=== PATIENT | female | born 1990 | race Caucasian/White ===

== ENCOUNTER 2018-08-01 12:54 | Outpatient (CLI) | payer MEDICAID | END 2018-08-01 14:58 | disposition home or self-care (01) | LOC: OBT 12:54 → L-D 12:54 → OBT 14:58 | DX: O62.9 Abnormality of forces of labor, unspecified (principal); Z3A.39 39 weeks gestation of pregnancy | CPT/HCPCS: 76815; 76818 ==

== ENCOUNTER 2018-08-06 09:04 | Inpatient (IN) | payer MEDICAID ==
[2018-08-06] MEDS ORDERED: MISOPROSTOL 50 MCG CAPSULE VAG (10:00)
[2018-08-06] MEDS ORDERED: BUTORPHANOL 2 MG INJ IV ×2 (10:00)
[2018-08-06] MEDS ORDERED: CARBOPROST 250 MCG INJ IM (10:00)
[2018-08-06] MEDS ORDERED: MISOPROSTOL 200 MCG TAB PR (10:00)
[2018-08-06] MEDS ORDERED: OXYTOCIN 30 UNITS/LR 500 ML IV (10:00)
[2018-08-06] MEDS ORDERED: LIDOCAINE 1% (MPF) 30 ML INJ INJ (10:00)
[2018-08-06] MEDS: LACTATED RINGER'S 1,000 ML IV ×3 (10:08→23:20)
[2018-08-06 10:33] LABS: ADD MAN DIFF? NO
[2018-08-06 10:36] LABS: BASOPHILS % 0.3 % (0.0-2.0); EOSINOPHILS % 0.3 % (0.0-7.0); HEMATOCRIT 38.5 % (37.0-47.0); LYMPHOCYTES # 1.2 10^3/ul (0.8-2.9); LYMPHOCYTES % 21.4 % (15.0-51.0); MEAN CORPUSCULAR HEMOGLOBIN 31.4 pg (29.0-33.0); MEAN CORPUSCULAR HGB CONC 33.8 g/dl (32.0-37.0); MONOCYTE # 0.4 10^3/ul (0.3-0.9); MONOCYTES % 6.3 % (0.0-11.0); NEUTROPHIL # 4.1 10^3/ul (1.6-7.5); NEUTROPHILS % 71.4 % (39.0-77.0); PLATELET COUNT 156 10^3/UL (140-415); RED BLOOD COUNT 4.14 10^6/ul (4.20-5.40); RED CELL DISTRIBUTION WIDTH 12.9 % (11.5-14.5)
[2018-08-06 10:36] LABS: WHITE BLOOD COUNT 5.8 10^3/ul (4.8-10.8)
[2018-08-06 10:56] LABS: INR 0.89; PROTIME 12.2 Sec (11.9-14.9)
[2018-08-06 11:29] LABS: HEPATITIS B SURFACE ANTIGEN NEGATIVE (NEGATIVE)
[2018-08-06] MEDS: MISOPROSTOL 50 MCG CAPSULE PO (18:22)
[2018-08-06] MEDS: MINERAL OIL LIGHT 10 ML VIAL TOP (20:00)
[2018-08-06 21:32] LABS: RAPID PLASMA REAGIN NONREACTIVE (NR)
[2018-08-07] MEDS: MISOPROSTOL 50 MCG CAPSULE PO ×2 (00:01→05:51)
[2018-08-07] MEDS: LACTATED RINGER'S 1,000 ML IV ×3 (08:16→14:32)
[2018-08-07] MEDS ORDERED: NALOXONE (0.4 MG/ML) INJ IV (11:00)
[2018-08-07] MEDS ORDERED: FENTAnyl 2MCG/ML-ROPIV 0.2% 100 ML BAG EPI (11:00)
[2018-08-07] MEDS: METHYLERGONOVINE 0.2 MG INJ IM (15:04)
[2018-08-07] MEDS: OXYTOCIN 30 UNITS/LR 500 ML IV ×2 (15:05→15:30)
[2018-08-07] MEDS ORDERED: OXYTOCIN 30 UNITS/LR 500 ML IV ×2 (15:19→15:30)
[2018-08-07] MEDS ORDERED: OXYCODONE/ASPIRIN (4.88/325) TAB PO ×2 (15:30)
[2018-08-07] MEDS ORDERED: NACL 0.9% 3 ML SYG IV (15:30)
[2018-08-07] MEDS ORDERED: METHYLERGONOVINE 0.2 MG INJ IM (15:30)
[2018-08-07] MEDS ORDERED: SENNA/DOCUSATE NA (8.6MG/50MG) TAB PO (15:30)
[2018-08-07] MEDS ORDERED: CARBOPROST 250 MCG INJ IM (15:30)
[2018-08-07] MEDS ORDERED: MISOPROSTOL 200 MCG TAB PR (15:30)
[2018-08-07] MEDS ORDERED: ONDANSETRON 4 MG INJ IV (15:30)
[2018-08-07] MEDS: LANOLIN HPA 1 PKT TOP (17:29)
[2018-08-07] MEDS: BENZOCAINE 20% 56 ML SPRAY TOP (17:29)
[2018-08-07] MEDS: WITCH HAZEL/GLYCERIN PAD PR (17:29)
[2018-08-07] MEDS: IBUPROFEN 600 MG TAB PO ×2 (17:29→23:29)
[2018-08-07] MEDS: SENNA/DOCUSATE NA (8.6MG/50MG) TAB PO (21:11)
[2018-08-08] MEDS: IBUPROFEN 600 MG TAB PO ×3 (05:29→17:54)
[2018-08-08 07:18] LABS: ADD MAN DIFF? NO
[2018-08-08 07:32] LABS: BASOPHILS % 0.3 % (0.0-2.0); EOSINOPHILS % 0.1 % (0.0-7.0); HEMATOCRIT 30.8 % (37.0-47.0); HEMOGLOBIN 10.4 g/dl (12.0-16.0); LYMPHOCYTES # 1.7 10^3/ul (0.8-2.9); LYMPHOCYTES % 19.5 % (15.0-51.0); MEAN CORPUSCULAR HEMOGLOBIN 31.6 pg (29.0-33.0); MEAN CORPUSCULAR HGB CONC 33.8 g/dl (32.0-37.0); MEAN CORPUSCULAR VOLUME 93.6 fl (82.0-101.0); MEAN PLATELET VOLUME 11.2 fl (7.4-10.4); MONOCYTE # 0.5 10^3/ul (0.3-0.9); MONOCYTES % 6.1 % (0.0-11.0); NEUTROPHIL # 6.5 10^3/ul (1.6-7.5); NEUTROPHILS % 73.3 % (39.0-77.0); PLATELET COUNT 127 10^3/UL (140-415); RED BLOOD COUNT 3.29 10^6/ul (4.20-5.40); RED CELL DISTRIBUTION WIDTH 12.8 % (11.5-14.5)
[2018-08-08 07:32] LABS: WHITE BLOOD COUNT 8.8 10^3/ul (4.8-10.8)
[2018-08-08 07:39] LABS: POSITIVE DIFF @See below
[2018-08-08] MEDS: SENNA/DOCUSATE NA (8.6MG/50MG) TAB PO ×2 (09:18→21:20)
[2018-08-09] MEDS: IBUPROFEN 600 MG TAB PO ×3 (00:18→11:47)
[2018-08-09] MEDS: LANOLIN HPA 1 PKT TOP ×2 (05:42→11:47)
[2018-08-09] MEDS: SENNA/DOCUSATE NA (8.6MG/50MG) TAB PO (09:37)
[2018-08-09] MEDS: BENZOCAINE 20% 56 ML SPRAY TOP (11:48)
[2018-08-09] MEDS: WITCH HAZEL/GLYCERIN PAD PR (11:48)
== END 2018-08-09 13:35 | disposition home or self-care (01) | DRG 807 ==
LOC: OBT 09:04 → L-D 08-07 03:15 → PP1 08-07 16:56 → OBT 09:40 → L-D 09:40
PROVIDERS: Obstetrics & Gynecology
PROC: 10E0XZZ Delivery of Products of Conception, External Approach (ICD-10-PCS; principal; 2018-08-07)
PROC: 0HQ9XZZ Repair Perineum Skin, External Approach (ICD-10-PCS; 2018-08-07)
PROC: 3E033VJ Introduction of Other Hormone into Peripheral Vein, Percutaneous Approach (ICD-10-PCS; 2018-08-07)
DX: O69.81X0 Labor and delivery complicated by cord around neck, without compression, not applicable or unspecified (principal); Z37.0 Single live birth; O48.0 Post-term pregnancy; Z3A.40 40 weeks gestation of pregnancy
CPT/HCPCS: 62322; 76815; 85025; 85610; 85730; 86592; 86850; 86900; 86901; 87340; 99464